=== PATIENT | female | born 1960 | race Caucasian/White ===

== ENCOUNTER 2017-12-20 09:46 | Outpatient (CLI) | payer OTHER ==
--- NOTE | 2017-12-20 12:19 | ULT ---
RIGHT UPPER QUADRANT ABDOMINAL ULTRASOUND: Date: 12/20/17 HISTORY: Right upper quadrant abdominal pain and nausea after eating for 2 months. TECHNIQUE: Multiplanar Dorado scale and color Doppler images were obtained in a right upper quadrant abdominal ult rasound. FINDINGS: A trace amount of sludge is seen in the gallbladder. There is no gallbladder wall thickening or peric holecystic fluid. The common bile duct is normal, measuring 4.0 mm. The liver is normal in echogenicity without focal lesions or intrahepatic ductal dilatation. Visualized portions of the pancreas are unremarkable. The right kidney is normal in echogenicity with out hydronephrosis or calculus and measures 10.6 cm in length. IMPRESSION: Unremarkable exam. POS: C
--- NOTE | 2017-12-20 13:03 | RAD ---
UPPER GI: Date: 12-20-17 History: Nausea, constipation, dyspepsia. FINDINGS: [employer] imaging demonstrates an nonobstructed bowel gas pattern. A double contrast upper GI was perform ed. Distal esophagus/gastroesophageal junction appears normal. The patient was initially imaged in the standing position. Contrast media collects within the gastric fundus and demonstrates an airfluid level. This is secondary to the gastric fundus being directed in a caudal posterior location. Once the patient is in the supine position the fundus empties and fills the remainder of the stomach which then empties normally. Gastric fold pattern is normal. No mass le adis is seen. The duodenal bulb and gastric antrum appear normal. With the patient in the supine position, gastroesophageal reflux was noted to the level of the thorac ic inlet. IMPRESSION: 1. The gastric fundus is directed posteriorly and in a caudal orientation creating an air fluid level in the gastric fundus on standing positioning. 2. Gastroesophageal reflux to the level of the thoracic inlet. POS: [facility]
== END 2017-12-20 09:47 | disposition home or self-care (01) ==
LOC: ULT 09:46
PROVIDERS: ATTEND Internal Medicine Gastroenterology
DX: R11.0 Nausea (principal); K30 Functional dyspepsia; K59.09 Other constipation; K21.9 Gastro-esophageal reflux disease without esophagitis
CPT/HCPCS: 74247; 76705